=== PATIENT | male | born 1990 | race Caucasian/White ===

== ENCOUNTER 2021-04-07 17:03 | Emergency (ER) | payer OTHER ==
[~2021-04-07] VITALS: Ht 190.5 cm; Wt 125.5 kg
--- NOTE | 2021-04-07 18:15 | REP ---
INDICATION: rolled ankle COMPARISON: None. TECHNIQUE: AP, lateral, bilateral oblique views. FINDINGS: Lateral soft tissue swelling consistent with inversion injury. No obvious acute fracture or dislocation identified. No subcutaneous emphysema or foreign body. IMPRESSION: Swelling. No acute fracture or dislocation. <Electronically signed by Roland Burns > 04/07/21 2029
[2021-04-07 19:32] VITALS: BP 152/98
== END 2021-04-07 19:34 | disposition home or self-care (01) ==
LOC: M ED 17:03
DX: S93.401A Sprain of unspecified ligament of right ankle, initial encounter (principal); X50.0XXA Overexertion from strenuous movement or load, initial encounter; Y92.9 Unspecified place or not applicable; Y93.67 Activity, basketball; Y99.9 Unspecified external cause status